=== PATIENT | male | born 2000 | race Caucasian/White ===

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

== ENCOUNTER 2020-01-11 10:34 | Emergency (ER) | payer OTHER ==
[~2020-01-11] VITALS: Ht 177.8 cm; Wt 54.4 kg
--- OUTSIDE RECORDS SUMMARY | ~2020-01-11 | XMS | Encounter Summary ---
Demographics + + + | Address | [address] | | | [place] [address] | + + + | Home Phone | | + + + | Preferred Language | Unknown | + + + | Marital Status | Single | + + + | Nondenominational Affiliation | Unknown | + + + | Race | White | + + + | Ethnic Group | Not or | + + + Author + + + | Author | [facility] | + + + | Organization | [facility] | + + + | Address [...] Team Providers + +------+ + | Care Fisheries Biologist Name | Role | Phone | + +------+ + | Sonia Pisano | PCP | | + +------+ + Encounter Details +--------+ + + + + | Date | Type | Department | Care Team | Description | +--------+ + + + + | 07/23/ | Document-Sc | Dermatology at | [facility] | | | 2017 | anned | Fabiola Tyson MD | | | | | Clinic [address] | | | | | | St [place] | | | | | | [address] | | | | | | [phone] | | | +--------+ + + + [...] on file | | + + + documented as of this encounter Plan of Treatment Not on filedocumented as of this encounter Visit Diagnoses Not on filedocumented in this encounter"
--- OUTSIDE RECORDS SUMMARY | ~2020-01-11 | XMS | Encounter Summary ---
Demographics + + + | Address | [address] | | | [place] [address] | + + + | Home Phone | | + + + | Preferred Language | Unknown | + + + | Marital Status | Single | + + + | Pentecostalism Affiliation | Unknown | + + + | Race | White | + + + | Ethnic Group | Not or | + + + Author + + + | Author | [facility] | + + + | Organization | [facility] | + + + | Address [...] Team Providers + +------+ + | Care Lost And Found Clerk Name | Role | Phone | + +------+ + | Sonia Pisano | PCP | | + +------+ + Reason for Visit +--------+ + | Reason | Comments | +--------+ + | Acne | | +--------+ + Consultation (Routine) +--------+ + + + + + | Status | Reason | Specialty | Diagnoses / | Referred By | Referred To | | | | | Procedures | Contact | Contact | +--------+ + + + + + | Closed | Specialty | Dermatology | Diagnoses | [place], | Felipe, | | | Services | | Acne, | Sonia Don, | Pippa Tyson MD | | | Required | | unspecified | [facility] | [address] | | | | | | SPECIALISTS | Ave | | | | | | [place] | [place], [place] | | | | | | [address] | [address] | | | | | | [address] | | | | | | | [place], | | | | | | | [place] [address] | | | | | | | Phone: | | | | | | | [phone] | | | | | | | Fax: | | | | | | | [phone] | | +--------+ + + + + + Encounter Details +--------+---------+ + + + | Date | Type | Department | Care Team | Description | +--------+---------+ + + + | 08/23/ | Office | Dermatology at | [facility] | Acne, unspecified | | 2017 | Visit | Verdigre Marlena Tyson MD | acne type (Primary | | | | Clinic [address] | | Dx) | | | | St [place], [place] | | | | | | [address] | | | | | | [phone] | | | +--------+---------+ + + + Social History + + [...] + + documented as of this encounter Last Filed Vital Signs + + + [...] | | + + + + + documented in this encounter Progress Notes Pippa Wang MD - 08/23/2016 11:15 AM PDT DERMATOLOGY NEW PATIENT VISIT CHIEF COMPLAINT: Acne PCP: ANNELIESE Adan HISTORY OF PRESENT ILLNESS: Mark Holder is a 16 y.o. male who presents for evaluation of Acne. Today he compl ains of acne for the last few years. He states that it has gotten worse in the last year. He describes painful ingrown hairs in some deep nodules. He recently took a course of Kefle x for 2 nodules on the forehead which resolved them. He states that he does breakout on his chest and back. He has only been using Clearasil face wipes and acne cleansers. He has no family history of severe acne that he is aware of. He does endorse a history of sensitive skin. He also has a history of elevated cholesterol. He denies any other skin complaints to day. He grew up in [place] since he was 4 years of age.. They have no history of tanning bed u se, few serious sunburns. 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 He does occasionally use sunscreens and protective clothing, and does examine his skin regularly. The patient's dermatology intake form was reviewed, signed, and dated. His relevant PMH, F H, and SH includes: PAST MEDICAL HISTORY: Elevated cholesterol, on Lipitor PAST SURGICAL HISTORY: No past surgical history on file. FAMILY HISTORY: Family History: No history of severe acne, inflammatory bowel disease SOCIAL HISTORY: Patient reports that he has quit smoking. His smoking use included Cigarettes. He does not have any smokeless tobacco history on file. MEDICATIONS: Current Medication List Name Sig ATORVASTATIN 20 MG TABLET MINOCYCLINE 100 MG CAPSULE Take 1 capsule by mouth every twelve hours. TRETINOIN 0.025 % TOPICAL CREAM Apply pea size amount to face, back and chest. Avoid eyes, nostrils, & mouth. VENTOLIN HFA 90 MCG/ACTUATION AEROSOL INHALER ALLERGIES: Allergies not on file REVIEW OF SYSTEMS: Please see HPI and PMH. In addition, he denies fever, chills, sweats, weight loss or loss of appetite, and has no further skin complaints. PHYSICAL EXAMINATION: Ht 1.746 m (5' 8.75") | Wt 54.4 kg (120 lb) | BMI 17.85 kg/(m^2) Well-developed, well-nourished male in no acute distress. Awake, alert and oriented. Plea tanesha and cooperative mood. A skin examination was performed including the scalp, face, eyelids, ears, lips, neck, ches t, back, abdomen, bilateral arms, bilateral hands and nails. Findings were within normal li mits except for the following: Face: Numerous comedones on forehead, cheeks, nose and chin with a number of violaceous at rophic macules on the lateral cheeks, forehead and temples, few inflammatory papules on for ehead and cheeks Back: Scattered inflammatory papules on the upper back and posterior shoulders Central chest: Few erythematous papules and numerous comedones ASSESSMENT AND PLAN: Acne, unspecified acne type (primary encounter diagnosis) Comment: Comedonal and inflammatory with scarring from prior inflammatory acne on face and back Face, chest, back Plan: Start tretinoin 0.025% cream every 3 days increasing to nightly as tolerated by jazmin loja. Reviewed proper use of retinoid with patient. Start minocycline 100 mg twice daily. Reviewed risks, benefits, and alternatives with araseli ent. Consider isotretinoin if not improved, however, would need to closely monitor lipids with h is history of elevated cholesterol. RETURN VISIT: Return in about 3 months (around 11/22/2016). Pippa Wang MD Microfabrication Engineer Manager Department of Dermatology [facility] [place] Electronically signed by Pippa Wang MD at 2016 3:24 PM PDTdocumented in this encounter Plan of Treatment Not on filedocumented as of this encounter Visit Diagnoses + + | Diagnosis | + + | Acne, unspecified acne type - Primary | + + documented in this encounter
--- OUTSIDE RECORDS SUMMARY | ~2020-01-11 | XMS | Clinical Summary ---
Demographics + + + | Address | [address] | | | [place] [address] | + + + | Home Phone | | + + + | Preferred Language | Unknown | + + + | Marital Status | Single | + + + | Church Affiliation | Unknown | + + + | Race | White | + + + | Ethnic Group | Not or | + + + Author + + + | Author | [facility] | + + + | Organization | [facility] | + + + | Address [...] Team Providers + +------+ + | Care Air Brush Artist Name | Role | Phone | + +------+ + | Sonia PisanoP | PCP | | + +------+ + Source Comments RADHA is fully live on both [facility] and [facility] InPatient.[facility] Allergies + + + + + [...] + + Plan of Treatment + + +-------+ + | Health Maintenance | Due Date | Last | Comments | | | | Done | | + + +-------+ + | Influenza (Flu) | | | | | vaccination (#1) | 9 | | | + + +-------+ + | Pneumococcal | Aged Out | | No longer eligible based on patient's age | | vaccination | | | to complete this topic | + + +-------+ + Results Not on filefrom Last 3 Months Insurance + +--------+ +--------+-------+---------+--------+ | Payer | Benefi | Subscriber | Effect | Phone | Address | Type | | | t Plan | ID | leia | | | | | | / | | Dates | | | | | | Group | | | | | | + +--------+ +--------+-------+---------+--------+ | [employer]ICE SHIFT [employer]ER MEDICAID | POLICE SHIFT COMMANDER | [id number] | Effect | | | Medica | [...] | Mother | [birth year] | [address] | | | al/Fam | | 1957 | [phone] | [place] [address] | | | domenica | | | 7 (Home) | | + +--------+ +--------+ + +
--- OUTSIDE RECORDS SUMMARY | ~2020-01-11 | XMS | Encounter Summary ---
Demographics + + + | Address | [address] | | | [place] [address] | + + + | Home Phone [...] Author + + + | Author | [facility] | + + + | Organization | [facility] | + + + | [...] Team Providers + +------+ + | Care Machine Boss Name | Role | Phone | + +------+ + | Sonia Pisano | PCP | | + +------+ + Reason for Visit + +--------+ + | Reason | Onset | Comments | | | Date | | + +--------+ + | Prescription | 08/23/ | | | | 2017 | | + +--------+ + Encounter Details +--------+ + + + + | Date | Type | Department | Care Team | Description | +--------+ + + + + | 08/23/ | Telephone | Dermatology at | [facility] | Prescription | | 2016 | | [facility] | | | | | [facility] [address] | | | | | [address] [place], [place] | | | | | | [address] | | | | | | [phone] | | | +--------+ + + + [...] + + documented as of this encounter Miscellaneous Notes Telephone Encounter - Maylin Hickman MA - 09/03/2016 3:10 PM PDTTretinoin PA was approv ed by insurance...Maylin Hickman MA LM on dad's VM.....Maylin Hickman MA elephone Encounter - Maylin Hickman MA - 08/24/2016 1:58 PM PDTCalled, they Needed day supply..Maylin saleh MA elephone Encounter - Tawny Calloway - 08/23/2016 12:[address] [facility] [place] . documented in this e ncounter Plan of Treatment Not on filedocumented as of this encounter Visit Diagnoses Not on filedocumented in this encounter"
--- OUTSIDE RECORDS SUMMARY | ~2020-01-11 | XMS | Encounter Summary ---
Demographics + + + | Address | [address] | | | [place] [address] | + + + | Home Phone | | + + + | Preferred Language | Unknown | + + + | Marital Status | Single | + + + | Spiritism Affiliation | Unknown | + + + | Race | White | + + + | Ethnic Group | Not or | + + + Author + + + | Author | [facility] | + + + | Organization | [facility] | + + + | Address [...] Team Providers + +------+ + | Care Mail Messenger Contractor Name | Role | Phone | [...] [place] | | | | | | [address] | | | | | | [phone] | | | +--------+ + + + [...]
--- OUTSIDE RECORDS SUMMARY | ~2020-01-11 | XMS | Encounter Summary ---
Demographics + + + | Address | [address] | | | [place] [address] | + + + | Home Phone | | + + + | Preferred Language | Unknown | + + + | Marital Status | Single | + + + | Congregational Affiliation | Unknown | + + + [...] Team Providers + +------+ + | Care Metal Die Finisher Name | Role | Phone | + [...] [place] | | | | | | [address] | | | | | | [phone] | | | +--------+ + + + [...]
[~2020-01-11 10:34] MED LIST changes: +CEPHALEXIN500 MG PO
== END 2020-01-11 11:02 | disposition home or self-care (01) ==
LOC: ED 10:34
DX: R04.0 Epistaxis (principal); E78.5 Hyperlipidemia, unspecified; F17.200 Nicotine dependence, unspecified, uncomplicated
CPT/HCPCS: 99283

== ENCOUNTER 2020-06-04 00:10 | Emergency (ER) | payer OTHER ==
[~2020-06-04] VITALS: Ht 177.8 cm; Wt 59.9 kg
== END 2020-06-04 00:50 | disposition home or self-care (01) ==
LOC: ED 00:10
DX: S51.812A Laceration without foreign body of left forearm, initial encounter (principal); W26.8XXA Contact with other sharp object(s), not elsewhere classified, initial encounter; F17.200 Nicotine dependence, unspecified, uncomplicated
CPT/HCPCS: 12002; 90471; 90715; 99282-25

== ENCOUNTER 2021-02-14 05:22 | Emergency (ER) | payer OTHER ==
[~2021-02-14] VITALS: Ht 175.3 cm; Wt 56.0 kg
== END 2021-02-14 06:05 | disposition home or self-care (01) ==
LOC: ED 05:22
DX: S51.812A Laceration without foreign body of left forearm, initial encounter (principal); E78.5 Hyperlipidemia, unspecified; F17.200 Nicotine dependence, unspecified, uncomplicated; X78.8XXA Intentional self-harm by other sharp object, initial encounter
CPT/HCPCS: 99282

== ENCOUNTER 2021-02-23 21:52 | Emergency (ER) | payer OTHER ==
[~2021-02-23] VITALS: Ht 175.3 cm; Wt 59.0 kg
--- OUTSIDE RECORDS SUMMARY | 2021-02-23 22:00 | XMS ---
PreManage Notification: DILAN MENA Security Registered Nurses Events No recent Security Events currently on file CRITERIA MET - [facility] - 2 Visits in 30 Days CARE PROVIDERS [place] Nurse Practitioner 08/23/2016-Sondar LONG PHONE: [phone] Mikael has no Care Guidelines for this patient. Chau VISIT COUNT (12 MO.) 3 [facility] TOTAL 3 NOTE: Visits indicate total known visits. ED/C VISIT TRACKING (12 MO.) 02/23/2021 21:53 [facility] [place] TYPE: Emergency COMPLAINT: - DIZZINESS 02/14/2021 05:22 [facility] [place] TYPE: Emergency COMPLAINT: - LT WRIST LACERATION DIAGNOSES: - Laceration without foreign body of left forearm, initial encounter - Nicotine dependence, unspecified, uncomplicated - Intentional self-harm by other sharp object, initial encounter - Hyperlipidemia, unspecified 06/04/2020 00:11 [facility] [place] TYPE: Emergency COMPLAINT: - LT ARM LACERATION DIAGNOSES: - Laceration without foreign body of left forearm, initial encounter - Nicotine dependence, unspecified, uncomplicated - Contact with other sharp object(s), not elsewhere classified, initial encounter INPATIENT VISIT TRACKING (12 MO.) No inpatient visits to display in this time frame [email or web address]
== END 2021-02-23 22:32 | disposition home or self-care (01) ==
LOC: ED 21:52
DX: F10.129 Alcohol abuse with intoxication, unspecified (principal); F12.929 Cannabis use, unspecified with intoxication, unspecified; E78.5 Hyperlipidemia, unspecified; F17.200 Nicotine dependence, unspecified, uncomplicated
CPT/HCPCS: 99283